=== PATIENT | female | born 1955 | race Caucasian/White ===

== ENCOUNTER → 2017-07-10 | Outpatient (CLI) | payer MEDICARE, OTHER ==
--- NOTE | ~2017-07-10 | CT137 ---
[facility] A Service [facility] RADIOLOGY TEXT RESULTS PATIENT: TROY MALIK LOCATION: [facility] : 57 UNIT #: [id number] AGE: [address]: Ovi Loo MD SEX: F ORDER DR: [id number] [place], [place] [address] [id number] O MR#: [id number] Acc #: [id number] NAME: TROY MALIK : 1955 SEX: F STUDY DATE/TIME: 07/10/2017 12:42 UNIT: [facility] ROOM: STUDY DESCRIPTION: CT Lung Screening annual Attending Physician: Ovi Loo M.D. Referring Physician: Ovi Loo M.D. Ordering Physician: Ovi Loo M.D. Primary Care Physician: Korina Chavez M.D. MEDICAL IMAGING REPORT This report is preliminary unless electronic signature is present EXAM CT lung cancer screening INDICATIONS Lung cancer screening. [id number] smoking history. PROCEDURE Unenhanced low-dose CT of the chest performed per lung cancer screening protocol. CTDI 3.0 mGy. Total DLP 136 mGy - cm. This CT exam was performed with one or more of the following radiation dose reduction techniques: automatic exposure control, adjustment of mA and/or kV according to patient size, and iterative reconstruction. COMPARISON 05/18/2016 FINDINGS Stable 4 mm nodule in the left lower lobe. Emphysema. Biapical scarring. No new or suspicious pulmonary nodule. No adenopathy. No acute findings in the included upper abdomen. No aggressive appearing bone lesion. IMPRESSION 1. Emphysema. 2. Stable 4 mm nodule in the left lower lobe. No new or suspicious pulmonary nodule. 3. Lung-RADS Category II: Benign findings. Per the ACR Lung-RADS recommendation, suggest patient continue with annual low-dose lung cancer screening. Dictated by... Jose Poole M.D. [facility] A Service [facility] RADIOLOGY TEXT RESULTS PATIENT: TROY MALIK LOCATION: [facility] : 57 UNIT #: [id number] AGE: [address]: Ovi Loo MD SEX: F ORDER DR: THIS IS AN ELECTRONICALLY VERIFIED REPORT Jose Poole M.D. at 07/16/2017 8:53 AM EED/to TD: 07/10/2017 17:52 JOB #: [id number] MEDICAL IMAGING REPORT Page 1 of 1 COPY
== END | disposition home or self-care (01) ==
LOC: CCAT 12:09
DX: Z87.891 Personal history of nicotine dependence (principal)
CPT/HCPCS: G0297